=== PATIENT | male | born 1935 | race African-American/Black ===

== ENCOUNTER 2019-09-24 22:24 | Inpatient (IN) | payer OTHER, BC ==
[~2019-09-24] VITALS: Ht 188 cm; Wt 110.7 kg
[2019-09-24 22:25] VITALS: BP 111/50
[2019-09-25] VITALS (7 sets, daily range): BP systolic 128–171; BP diastolic 52–97
[2019-09-25 02:19] LABS: ABSOLUTE NEUTROPHILS 9.5 thou/uL (1.4-8.2); BASOPHILS 0.3 % (0.0-2.0); EOSINOPHILS 0.1 % (0.0-3.0); HEMATOCRIT 33.9 % (42.0-52.0); HEMOGLOBIN 11.1 gm/dL (14.0-18.0); LYMPHOCYTES 4.7 % (24.0-44.0); MCH 30.2 pg (26.0-34.0); MCHC 32.8 g/dL (28.0-37.0); MCV 92.2 fL (80.0-100.0); MONOCYTES 5.5 % (1.0-8.0); PLATELET COUNT 127 thou/uL (150-400); POLYS 89.4 % (36.0-66.0); RBC 3.68 mil/uL (4.50-6.00); RDW 14.8 % (10.5-14.5); WBC 10.6 thou/uL (4.0-11.0)
[2019-09-25 02:34] LABS: CALCIUM 8.2 mg/dL (8.5-10.1); CREATININE 2.3 mg/dL (0.7-1.3); POTASSIUM 4.1 mmol/L (3.5-5.1)
[2019-09-25 04:46] LABS: URINE BILIRUBIN NEGATIVE (Negative); URINE BLOOD 1+ (Negative); URINE CLARITY CLOUDY; URINE COLOR YELLOW; URINE GLUCOSE-RANDOM* NEGATIVE (Negative); URINE KETONES TRACE (Negative); URINE NITRITE-REFLEX NEGATIVE (Negative); URINE PROTEIN (DIPSTICK) 1+ (Negative); URINE SPECIFIC GRAVITY >= 1.030 (1.005-1.035); URINE UROBILINOGEN 0.2 E.U./dl (0.2-1.0)
[2019-09-25 04:49] LABS: URINE LEUKOCYTES-REFLEX 2+ (Negative)
[2019-09-25 05:04] LABS: SQUAMOUS 0-3 Few /LPF (0-3); WBC CLUMPS Moderate (None Seen)
[2019-09-25 05:05] LABS: BACTERIA-REFLEX >30 Many /HPF (None Seen); CASTS None Seen /LPF (None Seen); CRYSTALS None Seen /LPF (None Seen); MUCUS 0-3 Light strn/LPF (None Seen)
--- NOTE | 2019-09-25 07:48 | NUR ---
PT ARRIVED ON THE UNIT FROM ER @0620 THIS MORNING WITH AT BEDSIDE. GOT PT SITUATED AND ORIENTED TO UNIT. VITALS TAKEN AND REPORT GIVEN TO DAY NURSE TO CONT CARE.
[2019-09-25] MEDS ORDERED: LIPITOR 20 MG T20 M1 PO (10:37)
[2019-09-25] MEDS ORDERED: BASAGLAR K100 UNIT/1 SUBQ (10:39)
[2019-09-25] MEDS ORDERED: LISINOPRIL-HCT1 EAC2 PO (10:40)
[2019-09-25] MEDS ORDERED: NEURONTIN100 MG PO (10:40)
[2019-09-25] MEDS ORDERED: VICTOZA 3-0.6 MG/0.1 SUBQ (10:42)
--- NOTE | 2019-09-25 13:31 | NUR ---
Case opened to follow for dc planning. Forensic Accountant visited with the pt at bedside. The pt was a&ox4. The pt was shivering and requesting a blanket. Nursing/electronic news gathering camera person notified of request and checking for fever. The pt indicates that he lives independently with his in a two story home. He has 12 steps up to his bedroom and bath. Their nephew and gson are currently living in the home as well. He reports that both he and his drive. He does have a cane. His pcp is Dr. Robin Cruz at [facility]. He denies any dc needs or concerns. Will ask for therapy evals and follow along should hh referral be indicated.
--- NOTE | 2019-09-25 13:44 | NUR ---
Admitted from ER this morning during shift changed, transferred to bed safely. A+Ox4. On room air. Vitals signs stable. Admission history, education, assessment and form signed. With at the bedside. On carb controlled diet- tolerating well; no nausea, no vomiting and no abdominal pain noted. On blood sugar monitoring- taken and recorded, with sliding scale insulin prescribed. Med reconciliation done- Dr Acuna informed that it is ready for review. On standby assist. Continent of bowels and bladder. With SL at L hand- NS at 80cc/hr resumed. Pt's BP 171/64 at 11:56am- Dr Acuna informed, ordered Hydralazine 10mg, TIV PRN- given as prescribed. Shivering noted on patient- warm blankets given and checked temp 98.8. Will re-check again. With order for Renal ultrasound, pt taken down via wheelchair this afternoon.
[2019-09-26 01:07] LABS: GLYCOHEMOGLOBIN (HGB A1C) 7.2 % (4.8-5.6)
--- NOTE | 2019-09-26 04:04 | NUR ---
ASSESSED AT START OF SHIFT PT A&OX4. WITH C/O PAIN IN LFT HIP AND CHILLS. VITALS CHECKED AND PT TACHY WITH TEMP OF 103. TYLENOL GIVEN THIS SHIFT ONCALL GRAINER MACHINE CALLED AND ORDERS GIVEN FOR TRAMADOL. PT UP BY BEDSIDE WITH URINAL DUE TO FREQ URINATION. BY BEDSIDE. TEMP BACK DOWN TO 99. AND PT NOW STABLE. IV INTACT AND FLUIDS INFIUSING. FALL PREC IN PLACE AND CALL LIGHT IN REACH WILL CONT WITH POC TILL EOS.
[2019-09-26 05:40] VITALS: BP 132/63
[2019-09-26 06:05] LABS: HEMATOCRIT 30.7 % (42.0-52.0); HEMOGLOBIN 9.9 gm/dL (14.0-18.0); MCH 30.4 pg (26.0-34.0); MCHC 32.1 g/dL (28.0-37.0); MCV 94.6 fL (80.0-100.0); PLATELET COUNT 109 thou/uL (150-400); RBC 3.24 mil/uL (4.50-6.00); RDW 14.6 % (10.5-14.5); WBC 11.2 thou/uL (4.0-11.0)
[2019-09-26 06:42] LABS: CALCIUM 8.4 mg/dL (8.5-10.1); CREATININE 1.7 mg/dL (0.7-1.3); MAGNESIUM 2.1 mg/dL (1.8-2.4); POTASSIUM 4.6 mmol/L (3.5-5.1)
[2019-09-26 10:11] VITALS: BP 123/65
[2019-09-26 11:01] LABS: ABSOLUTE NEUTROPHILS 8.3 thou/uL (1.4-8.2); ANISOCYTOSIS 1+
--- NOTE | 2019-09-26 16:08 | NUR ---
PT CARE ASSUMED AT 0700. A&Ox3-4 WITH PARTIAL CONFUSION DUE TO THE UTI. DAUGHTERS UPDATED ABOUT THE POS. ECOLI RESULTS OVER THE PHONE. ESL TUTOR CONSULTED AND NOW ON A NEW SLIDING SCALE. ACHS WITH COVERAGE NEEDED. PT IS A STAND BY ASSIST. IV PATENT WITH NO REDNESS OR EDEMA. FLUIDS INFUSING. ON ROOM AIR. PT UP IN RECLINER MOST OF THE DAY. PT AND OT ON BOARD. FALL PROTOCOL IN PLACE WITH CALL LIGHT IN REACH.
[2019-09-26 17:04] VITALS: BP 130/68
[2019-09-26 18:32] VITALS: BP 141/75
--- NOTE | 2019-09-26 19:18 | NUR ---
REPORT RECEIVED FROM OFELIA ON 4S. PT ARRIVED ON UNIT, AOX4, VSS, IV FLUIDS RUNNING IN LEFT FA. PT HAS CALL LIGHT AND CALL APPROPRIATELY. WILL CONT TO MONITOR.
[2019-09-26 22:14] VITALS: BP 151/83
--- NOTE | 2019-09-27 05:43 | NUR ---
ASSUMED CARE OF PATIENT AT APPROX 2044. ASSESSMENT CHARTED. MEDICATIONS GIVEN PER EMAR. PATIENT ALERT AND ORIENTED X 4. VSS. DENIES PAIN. AT BEDSIDE. PATIENT IS AFEBRILE, UP TO BATHROOM THIS SHIFT WITH STANBY ASSIST AND ALSO USES URINAL. PATIENT HAS SOME DRIBBLING AND STATES HE WEARS BRIEFS. PATIENT HAD A BM THIS SHIFT. PATIENT STATED SOME STINGING WHEN FLUSHED WITH 10ML NS SYRINGE. NO S/S OF INFILTRATION OR PHLEBITIS NOTED; IV FLUIDS CONITNUE TO RUN AT 80MLS/HR. PATIENT VOICED TROUBLE SLEEPING. MELATONIN ORDERED AND ADMINISTERED. PATIENT VOICES NO OTHER NEEDS. CONTINUING ABX THX. FALL PRECAUTIONS IN PLACE. WILL CONTINUE TO MONITOR AND FOLLOW PLAN OF CARE
--- NOTE | 2019-09-27 08:01 | NUR ---
IV DISCONTINUED ON L FOREARM. PATIENT HAS NO IV ACCESS. IV TEAM PAGED/VOICEMAIL LEFT
--- NOTE | 2019-09-27 10:02 | NUR ---
DISCHARGE NOTE: TESSA reviewed chart and spoke with nursing and attending physician. Pt was transferred to [facility] from and is medically stable for discharge home today. SW met with pt at bedside to discuss discharge plan. No discharge needs identified. Pt states that his family will provide transportation home this afternoon. SW is available to assist should needs arise.
[2019-09-27 11:52] LABS: HEMATOCRIT 30.8 % (42.0-52.0); HEMOGLOBIN 10.3 gm/dL (14.0-18.0); MCH 30.8 pg (26.0-34.0); MCHC 33.4 g/dL (28.0-37.0); MCV 92.3 fL (80.0-100.0); RBC 3.34 mil/uL (4.50-6.00); RDW 14.7 % (10.5-14.5); WBC 7.6 thou/uL (4.0-11.0)
[2019-09-27 12:09] LABS: CALCIUM 8.5 mg/dL (8.5-10.1); CREATININE 1.4 mg/dL (0.7-1.3); MAGNESIUM 1.9 mg/dL (1.8-2.4); POTASSIUM 4.2 mmol/L (3.5-5.1)
--- NOTE | 2019-09-27 12:47 | HC ---
[facility] [place] [address] CONSULTATION Name: BELKIS NICHOLS Room #: 412- ADM IN M.R.#: [id number] Admission: 09/25/19 Attend Phys: Dago Acuna MD Discharge: Date of : 31 Report #: [id number] THIS REPORT FOR: cc: Robin Cruz MD, Steven M. MD Al-Mubaslat, Ahmad MD ~ CC: Dago Cruz MD DATE OF SERVICE: 09/26/2019 ENDOCRINE CONSULTATION NOTE CONSULTING PHYSICIAN: Dr. Bach. REASON FOR CONSULTATION: Uncontrolled type 2 diabetes mellitus. HISTORY OF PRESENT ILLNESS: This is an 84-year-old male patient whose medical background is significant for multiple medical issues including type 2 diabetes mellitus, hypertension, hyperlipidemia, who presented to the ER with progressive issues of headaches, dizziness and weakness. The patient was subsequently found to have urosepsis, dehydration and renal insufficiency and was admitted for further care and monitoring. The patient notes that he has had type 2 diabetes mellitus for many years. He is under the care of an medical technologist prn at [facility] and is currently maintained on a regimen of Basaglar 35 units q.p.m., Humalog 16 units with breakfast, 20 units with lunch, and 24 units with dinner, in addition to Victoza 1.8 mg daily. The patient notes that his blood glucose control has been excellent and reports blood glucose values that run in the low 100 mg/dL range in the morning and maintain a low to mid 100 mg/dL range during the day. Hypoglycemia is infrequent and when it does occur, it tends to be mild. The patient is not aware of issues pertaining to diabetic retinopathy and has had routine eye exams for the most part over the past several years. He is not aware of issues of nephropathy, but he does report difficulties pertaining to diabetic neuropathy for which he takes gabapentin. It appears that gabapentin exerts adequate control on this issue. The patient denies active or past issues with heart disease. REVIEW OF SYSTEMS: CONSTITUTIONAL: Fatigue, tiredness, no fever, chills or body weight changes. HEENT: Negative for sinus pain, congestion, ear drainage. PULMONARY: Negative for shortness of breath, cough or hemoptysis. CARDIAC: Negative for chest pain, palpitations, syncope or presyncope. GASTROINTESTINAL: Negative for abdominal pain, noted for occasional nausea, no [facility] [address] [place] [address] CONSULTATION Name: [facility]: [facility]-P [facility] IN ..#: [id number] Admission: 09/25/19 Attend Phys: Dago Acuna MD Discharge: Date of : 31 Report #: [id number] vomiting. NEUROLOGY: Dizziness, lightheadedness, but not seizure activity. He has had more frequent headaches lately. PSYCHIATRIC: Negative for delusions, hallucinations. UROLOGY: Negative for dysuria, hematuria, or frequency. Otherwise, review of systems noncontributory unless mentioned in HPI. PAST MEDICAL HISTORY: Type 2 diabetes mellitus, hyperlipidemia, hypertension, diabetic neuropathy, history of shingles. ACTIVE MEDICATIONS: Basaglar 35 units at bedtime, Humalog insulin 16 units with breakfast, 20 units with lunch, 24 units with dinner, Victoza 1.8 mg daily, gabapentin 100 mg at bedtime, atorvastatin 20 mg daily, lisinopril/hydrochlorothiazide 20/25 mg daily. ALLERGIES: The patient has no known drug allergies. FAMILY HISTORY: Noncontributory. SOCIAL HISTORY: The patient denies any use of tobacco, alcohol or illicit drugs. PHYSICAL EXAMINATION: GENERAL: Pleasant -Algerian male patient who is not in apparent pain or distress. VITAL SIGNS: Blood pressure is 123/65 mmHg, heart rate is 88 beats per minute, respiration 18 per minute, temperature 35.6 Celsius. CONSTITUTIONAL: The patient is sitting in bed, appears comfortable, not in apparent distress. HEENT: Anicteric sclerae. Intact extraocular motions. NECK: Supple, without JVD, carotid bruits or lymphadenopathy. I do not appreciate thyromegaly. CHEST: Noted for moderate entry bilaterally without crackles or wheezes. HEART: Regular rate and rhythm without murmurs or gallops. ABDOMEN: Soft and lax without tenderness, guarding, or appreciable organomegaly. The patient has active bowel sounds. EXTREMITIES: Lower extremity exam is noted for trace ankle edema, but no skin breaks, ulcerations. Sensation to light touch is slightly diminished. NEUROLOGIC: Awake, alert and oriented to time, place and person. The remainder of his examination is nonfocal. PSYCH: Interactive, appropriate. Normal mood and affect. LABORATORY DATA: Blood glucose values since arrival to the hospital have run between 101 and 241 mg/dL, but for the most part have remained above 200 mg/dL. Otherwise, sodium 138, potassium 4.6, chloride 105, CO2 of 21, anion gap 12, BUN 34, creatinine 1.7, was 2.3 on presentation. Calcium 8.4, magnesium 2.1, EGFR [address] [address] CONSULTATION Name: BELKIS NICHOLS Room #: 412-P [facility] [place] Rajendra#: [id number] Admission: 09/25/19 Attend Phys: Dago Acuna MD Discharge: Date of : 31 Report #: [id number], white blood count 11.2, hemoglobin 9.9, hematocrit 30.7, platelets 109. Hemoglobin A1c 7.2%. ASSESSMENT AND PLAN: 1. Type 2 diabetes mellitus. As noted above, I will design therapy regimen consisting of Basaglar, Humalog as well as Victoza with reportedly adequate range of control as per his reported values. This is also reflected in his hemoglobin A1c of 7.2 pointing to near ideal control. Since his presentation, the patient has been without a scheduled insulin, which was initially reasonable, but he is starting to demonstrate blood glucose values over 200 mg/dL. That said, I will resume basal bolus coverage, but with reduced doses at Lantus insulin 18 units q.p.m. and Humalog insulin 6 units t.i.d. a.c. in addition to coverage with low intensity Humalog sliding scale. Blood glucose monitoring will commence a.c. and at bedtime and further changes will be made accordingly. 2. Renal insufficiency. The patient presented with kidney function parameters that are consistent with stage 3 kidney disease; however, he seems to have suffered prerenal azotemia and his kidney function indices are looking better already. Continue the current supportive measures and maintain kidney function monitoring. 3. Hyperlipidemia. The patient is maintained on atorvastatin therapy, he will be continued on the same during his hospital stay. 4. Diabetic neuropathy. The patient is stable on a regimen of low dose gabapentin therapy of 100 mg at bedtime. This will be maintained here. 5. I certainly appreciate this consultation by Dr. Acuna. <ELECTRONICALLY SIGNED> By: Nida Ballard MD 09/27/19 [id number] Nida Ballard MD /nt
[2019-09-27] MEDS ORDERED: PRINIVIL20 M1 PO (14:39)
[2019-09-27] MEDS ORDERED: LEVAQUIN 500 M500 M6 PO (14:40)
[2019-09-27 15:54] VITALS: BP 151/83
[2019-09-27 15:56] VITALS: BP 142/66
== END 2019-09-27 17:34 | disposition home or self-care (01) | DRG 871 ==
LOC: ER 22:24 → 4S 09-25 05:17 → EROBS 09-25 05:17 → 4N 09-25 05:52 → 4S 09-25 06:17 → 4N 09-26 18:17 → ENTRNSPT 09-27 16:54 → 4N 09-27 17:34
PROVIDERS: Emergency Medicine; Nurse Practitioner; ADMIT Internal Medicine
DX: A41.9 Sepsis, unspecified organism (principal); N17.0 Acute kidney failure with tubular necrosis; N39.0 Urinary tract infection, site not specified; N17.9 Acute kidney failure, unspecified; E78.5 Hyperlipidemia, unspecified; E11.40 Type 2 diabetes mellitus with diabetic neuropathy, unspecified; E11.22 Type 2 diabetes mellitus with diabetic chronic kidney disease; I12.9 Hypertensive chronic kidney disease with stage 1 through stage 4 chronic kidney disease, or unspecified chronic kidney disease; N18.9 Chronic kidney disease, unspecified; G47.00 Insomnia, unspecified; E53.8 Deficiency of other specified B group vitamins; E55.9 Vitamin D deficiency, unspecified; B96.20 Unspecified Escherichia coli [E. coli] as the cause of diseases classified elsewhere; E86.0 Dehydration; Z79.2 Long term (current) use of antibiotics; Z79.4 Long term (current) use of insulin; Z79.899 Other long term (current) drug therapy
CPT/HCPCS: 10091; 10195